=== PATIENT | female | born 1965 | race Asian ===

== ENCOUNTER 2020-10-14 18:27 | Inpatient (IN) | payer MEDICAID, SELFPAY ==
[~2020-10-14] VITALS: Ht 154.9 cm; Wt 56.7 kg
[~2020-10-14 18:27] MED LIST: ASPI-1822 GT; ATRN IH; BISA10SU2 RC; DOCU-300 GT; ESOM40EC GT; FER300L GT; GABA300C GT; GUAI100S2 GT; IPRA3AMP2 IH; MAGN2400 GT; METO25TA GT; OMEP40EC24 GT; POLY15SO48 OP; PRON IH; ROB1 GT; TRAM50TA1 GT; [UNRECOGNIZED DRUG - CODE] GT; [UNRECOGNIZED DRUG - CODE] GT; [UNRECOGNIZED DRUG - OTHER] TP
[2020-10-14 18:31] VITALS: BP 166/70
[2020-10-14] MEDS ORDERED: DEXT 5% / NACL 0.9% 500 ML IV ONE (22:20)
[2020-10-14 22:27] LABS: BASOPHILS % (AUTO) 0.7 % (0.0-2.0); EOSINOPHILS # (AUTO) 0.1 K/uL (0-0.4); EOSINOPHILS % (AUTO) 1.8 % (0.0-4.0); HEMATOCRIT 38.6 % (36-48); LYMPHOCYTES # (AUTO) 1.2 K/uL (2.5-16.5); LYMPHOCYTES % (AUTO) 26.1 % (20.5-51.1); MEAN CORPUSCULAR HEMOGLOBIN 31 pg (27-31); MEAN CORPUSCULAR HGB CONC 34 g/dL (33-37); MEAN CORPUSCULAR VOLUME 91.4 fL (80-94); MONOCYTES # (AUTO) 0.4 K/uL (0.8-1.0); MONOCYTES % (AUTO) 8.9 % (1.7-9.3); NEUTROPHILS # (AUTO) 2.8 K/uL (1.8-7.7); NEUTROPHILS % (AUTO) 62.5 % (42.2-75.2); PLATELET COUNT (AUTO) 181 K/uL (140-450); RED BLOOD CELL COUNT(AUTO) 4.23 MIL/uL (4.20-5.40); RED CELL DISTRIBUTION WIDTH 13.4 % (11.6-13.7); WHITE BLOOD COUNT (AUTO) 4.5 K/uL (4.8-10.8)
[2020-10-14 22:48] LABS: ALBUMIN 3.8 g/dL (3.4-5.0); ANION GAP 13.2 (8-16); CARBON DIOXIDE 26.6 mmol/L (21-32); CREATININE 0.6 mg/dL (0.6-1.3); TOTAL BILIRUBIN 0.6 mg/dL (0.0-1.0)
[2020-10-14 23:07] LABS: POTASSIUM 2.8 mmol/L (3.5-5.1)
[2020-10-14] MEDS ORDERED: guaiFENesin 20 MG/ML UDC GT SCH (23:20)
[2020-10-14] MEDS ORDERED: ACETAMINOPHEN 325 MG TAB PO PRN (23:20)
[2020-10-14] MEDS ORDERED: ZOLPIDEM 5 MG TAB PO PRN (23:20)
[2020-10-14] MEDS ORDERED: MAG SULF 2000 MG/WATER PREMIX 50 ML IV PRN (23:20)
[2020-10-14] MEDS ORDERED: TPN PER PHARMACY MC PRN (23:20)
[2020-10-14] MEDS ORDERED: IPRATROPIUM 0.02% 0.5 MG/2.5 ML NEBU INH SCH (23:20)
[2020-10-14] MEDS ORDERED: ONDANSETRON 4 MG/2 ML VIAL IM/IVP PRN (23:20)
[2020-10-14] MEDS ORDERED: ALBUTEROL 0.083% 2.5 MG/3 ML NEBU INH SCH (23:20)
[2020-10-14] MEDS ORDERED: LORazepam 2 MG/ML VIAL IM/IVP PRN (23:20)
[2020-10-14] MEDS ORDERED: DOCUSATE SODIUM 100 MG GELCAP PO PRN (23:20)
[2020-10-14] MEDS ORDERED: POTASSIUM CHLORIDE 10 MEQ TABER PO PRN (23:20)
[2020-10-14] MEDS ORDERED: traMADol 50 MG TAB GT PRN (23:20)
[2020-10-15 00:03] LABS: MAGNESIUM 1.8 mg/dL (1.8-2.4); PHOSPHORUS 2.6 mg/dL (2.5-4.9); THYROID STIMULATING HORMONE 5.74 uIU/mL (0.34-3.74)
[2020-10-15 00:08] LABS: PROTHROMBIN TIME 10.9 secs (10.8-13.4)
[2020-10-15] MEDS: POLYVINYL ALCOHOL 1.4% OP 15 ML SOL BOTH EYES SCH ×4 (00:16→21:09)
[2020-10-15] MEDS ORDERED: IPRATROPIUM 0.02% 0.5 MG/2.5 ML NEBU INH PRN (00:20)
[2020-10-15] MEDS ORDERED: ALBUTEROL 0.083% 2.5 MG/3 ML NEBU INH PRN (00:20)
[2020-10-15] MEDS: MORPHINE SULFATE 2 MG/ML SYR IVP PRN ×5 (01:02→21:17)
[2020-10-15] MEDS ORDERED: BACITRACIN OINT 500 UNITS/GM PKT TP ONE ×2 (02:48→06:16)
[2020-10-15] MEDS ORDERED: KCL 20 MEQ/WATER INJ PREMIX 200 ML IV SCH (04:20)
[2020-10-15] MEDS ORDERED: POLYVINYL ALCOHOL 1.4% OP 15 ML SOL OP SCH (05:00)
[2020-10-15 07:58] LABS: BASOPHILS % (AUTO) 0.4 % (0.0-2.0); EOSINOPHILS # (AUTO) 0.1 K/uL (0-0.4); EOSINOPHILS % (AUTO) 1.5 % (0.0-4.0); HEMATOCRIT 40.3 % (36-48); HEMOGLOBIN 13.6 g/dL (12.0-16.0); LYMPHOCYTES # (AUTO) 0.9 K/uL (2.5-16.5); LYMPHOCYTES % (AUTO) 26.8 % (20.5-51.1); MEAN CORPUSCULAR HEMOGLOBIN 31 pg (27-31); MEAN CORPUSCULAR HGB CONC 34 g/dL (33-37); MEAN CORPUSCULAR VOLUME 92.1 fL (80-94); MONOCYTES # (AUTO) 0.3 K/uL (0.8-1.0); MONOCYTES % (AUTO) 9.5 % (1.7-9.3); NEUTROPHILS # (AUTO) 2.2 K/uL (1.8-7.7); NEUTROPHILS % (AUTO) 61.8 % (42.2-75.2); PLATELET COUNT (AUTO) 177 K/uL (140-450); RED BLOOD CELL COUNT(AUTO) 4.37 MIL/uL (4.20-5.40); RED CELL DISTRIBUTION WIDTH 13.2 % (11.6-13.7); WHITE BLOOD COUNT (AUTO) 3.5 K/uL (4.8-10.8)
[2020-10-15 08:26] LABS: ANION GAP 15.3 (8-16); CARBON DIOXIDE 25.9 mmol/L (21-32); CREATININE 0.6 mg/dL (0.6-1.3); POTASSIUM 3.2 mmol/L (3.5-5.1)
[2020-10-15 09:09] LABS: MAGNESIUM 1.9 mg/dL (1.8-2.4); PHOSPHORUS 2.6 mg/dL (2.5-4.9)
[2020-10-15] MEDS ORDERED: CRUSHER, PILL MC ONE (09:17)
[2020-10-15] MEDS: GABAPENTIN 300 MG CAP GT SCH ×2 (09:27→21:11)
[2020-10-15] MEDS: DOCUSATE SODIUM 100 MG GELCAP PO SCH (09:27)
[2020-10-15] MEDS: ASPIRIN 81 MG TAB.CHEW GT SCH (09:27)
[2020-10-15] MEDS: METOPROLOL 25 MG TAB GT SCH ×2 (09:27→21:10)
[2020-10-15] MEDS: FERROUS SULFATE 300 MG/5 ML UDC GT SCH (09:28)
[2020-10-15 11:04] LABS: CHOL/HDL RATIO 3.3 (1-4.5)
[2020-10-15] MEDS: GLYCOPYRROLATE 1 MG TAB GT SCH ×2 (11:39→21:11)
[2020-10-15] MEDS: BLOOD GLUCOSE MONITORING 1 DEV DEV MC SCH (18:19)
[2020-10-15 20:00] VITALS: BP 153/70
[2020-10-15] MEDS ORDERED: DEXTROSE IV SCH ×4 (20:00)
[2020-10-15] MEDS ORDERED: [UNRECOGNIZED DRUG - OTHER] IV SCH ×4 (20:00)
[2020-10-15] MEDS ORDERED: AMINO ACIDS IV SCH ×4 (20:00)
[2020-10-15] MEDS ORDERED: MULTIVITAMIN IV SCH ×4 (20:00)
[2020-10-15] MEDS ORDERED: GABAPENTIN 300 MG CAP GT SCH (21:00)
[2020-10-15] MEDS ORDERED: DEXT 5% /NACL 0.9% 1,000 ML IV SCH (23:35)
[2020-10-16] MEDS: BLOOD GLUCOSE MONITORING 1 DEV DEV MC SCH ×4 (00:12→17:59)
[2020-10-16 04:00] VITALS: BP 144/58
[2020-10-16] MEDS: POLYVINYL ALCOHOL 1.4% OP 15 ML SOL BOTH EYES SCH ×3 (04:46→21:06)
[2020-10-16 08:00] VITALS: BP 148/79
[2020-10-16 08:20] LABS: T4 (THYROXINE) 6.1 ug/dL (4.5-12.0)
[2020-10-16] MEDS: FERROUS SULFATE 300 MG/5 ML UDC GT SCH (08:26)
[2020-10-16] MEDS: ASPIRIN 81 MG TAB.CHEW GT SCH (08:26)
[2020-10-16] MEDS: GABAPENTIN 300 MG CAP GT SCH ×2 (08:27→21:05)
[2020-10-16] MEDS: GLYCOPYRROLATE 1 MG TAB GT SCH ×2 (08:27→21:05)
[2020-10-16] MEDS: METOPROLOL 25 MG TAB GT SCH ×2 (08:27→21:05)
[2020-10-16] MEDS: DOCUSATE SODIUM 100 MG GELCAP PO SCH (08:28)
[2020-10-16 09:35] LABS: BASOPHILS % (AUTO) 0.2 % (0.0-2.0); EOSINOPHILS % (AUTO) 0.8 % (0.0-4.0); HEMATOCRIT 41.1 % (36-48); HEMOGLOBIN 13.5 g/dL (12.0-16.0); LYMPHOCYTES # (AUTO) 0.7 K/uL (2.5-16.5); LYMPHOCYTES % (AUTO) 17.4 % (20.5-51.1); MEAN CORPUSCULAR HEMOGLOBIN 31 pg (27-31); MEAN CORPUSCULAR HGB CONC 33 g/dL (33-37); MEAN CORPUSCULAR VOLUME 93.3 fL (80-94); MONOCYTES # (AUTO) 0.3 K/uL (0.8-1.0); MONOCYTES % (AUTO) 7.6 % (1.7-9.3); NEUTROPHILS # (AUTO) 2.9 K/uL (1.8-7.7); PLATELET COUNT (AUTO) 173 K/uL (140-450); RED BLOOD CELL COUNT(AUTO) 4.41 MIL/uL (4.20-5.40); RED CELL DISTRIBUTION WIDTH 13.3 % (11.6-13.7); WHITE BLOOD COUNT (AUTO) 3.9 K/uL (4.8-10.8)
[2020-10-16 09:41] LABS: ANION GAP 11.9 (8-16); CARBON DIOXIDE 29.3 mmol/L (21-32); CREATININE 0.7 mg/dL (0.6-1.3); POTASSIUM 3.2 mmol/L (3.5-5.1)
[2020-10-16 09:50] LABS: PHOSPHORUS 2.3 mg/dL (2.5-4.9)
[2020-10-16] MEDS: MORPHINE SULFATE 2 MG/ML SYR IVP PRN ×3 (11:55→21:07)
[2020-10-16 12:00] VITALS: BP 145/69
[2020-10-16] MEDS ORDERED: DEXT 5% / NACL 0.45% 1,000 ML IV SCH (12:00)
[2020-10-16] MEDS ORDERED: POTASSIUM PHOSPHATE 15 MM in NACL 0.9% 250 ML IV SCH (14:00)
[2020-10-16 16:00] VITALS: BP 159/68
[2020-10-16 20:00] VITALS: BP 134/66
[2020-10-16] MEDS: DEXTROSE IV SCH ×4 (22:49)
[2020-10-16] MEDS: AMINO ACIDS IV SCH ×4 (22:49)
[2020-10-16] MEDS: MULTIVITAMIN IV SCH ×4 (22:49)
[2020-10-16] MEDS: [UNRECOGNIZED DRUG - OTHER] IV SCH ×4 (22:49)
[2020-10-17] MEDS: BLOOD GLUCOSE MONITORING 1 DEV DEV MC SCH ×5 (00:17→23:59)
[2020-10-17] MEDS: MORPHINE SULFATE 2 MG/ML SYR IVP PRN ×4 (05:39→22:16)
[2020-10-17] MEDS: POLYVINYL ALCOHOL 1.4% OP 15 ML SOL BOTH EYES SCH ×3 (05:41→20:44)
[2020-10-17 06:10] VITALS: BP 137/86
[2020-10-17 06:58] LABS: BASOPHILS % (AUTO) 0.1 % (0.0-2.0); EOSINOPHILS % (AUTO) 0.3 % (0.0-4.0); HEMATOCRIT 36.9 % (36-48); HEMOGLOBIN 12.5 g/dL (12.0-16.0); LYMPHOCYTES # (AUTO) 0.8 K/uL (2.5-16.5); LYMPHOCYTES % (AUTO) 8.3 % (20.5-51.1); MEAN CORPUSCULAR HEMOGLOBIN 31 pg (27-31); MEAN CORPUSCULAR HGB CONC 34 g/dL (33-37); MONOCYTES # (AUTO) 0.5 K/uL (0.8-1.0); MONOCYTES % (AUTO) 4.6 % (1.7-9.3); NEUTROPHILS # (AUTO) 8.5 K/uL (1.8-7.7); NEUTROPHILS % (AUTO) 86.7 % (42.2-75.2); PLATELET COUNT (AUTO) 159 K/uL (140-450); RED BLOOD CELL COUNT(AUTO) 4.01 MIL/uL (4.20-5.40); RED CELL DISTRIBUTION WIDTH 13.2 % (11.6-13.7); WHITE BLOOD COUNT (AUTO) 9.8 K/uL (4.8-10.8)
[2020-10-17 07:43] LABS: CARBON DIOXIDE 28.5 mmol/L (21-32); CREATININE 0.5 mg/dL (0.6-1.3)
[2020-10-17 07:44] LABS: PHOSPHORUS 2.4 mg/dL (2.5-4.9)
[2020-10-17 07:50] LABS: ANION GAP 12.5 (8-16)
[2020-10-17 07:58] LABS: MAGNESIUM 1.8 mg/dL (1.8-2.4)
[2020-10-17 08:00] VITALS: BP 145/76
[2020-10-17] MEDS: FERROUS SULFATE 300 MG/5 ML UDC GT SCH (09:59)
[2020-10-17] MEDS: GABAPENTIN 300 MG CAP GT SCH ×2 (09:59→20:44)
[2020-10-17] MEDS: DOCUSATE 100 MG/10 ML UDC PO SCH (10:00)
[2020-10-17] MEDS: ASPIRIN 81 MG TAB.CHEW GT SCH (10:00)
[2020-10-17] MEDS ORDERED: POTASSIUM PHOSPHATE 15 MM in NACL 0.9% 250 ML IV SCH (10:00)
[2020-10-17] MEDS: METOPROLOL 25 MG TAB GT SCH ×2 (10:00→20:44)
[2020-10-17] MEDS: GLYCOPYRROLATE 1 MG TAB GT SCH ×2 (10:00→20:44)
[2020-10-17 16:00] VITALS: BP 126/66
[2020-10-17 20:00] VITALS: BP 138/67
[2020-10-17] MEDS: DEXTROSE IV SCH ×4 (20:44)
[2020-10-17] MEDS: AMINO ACIDS IV SCH ×4 (20:44)
[2020-10-17] MEDS: [UNRECOGNIZED DRUG - OTHER] IV SCH ×4 (20:44)
[2020-10-17] MEDS: MULTIVITAMIN IV SCH ×4 (20:44)
[2020-10-17] MEDS ORDERED: PIPERACILLIN/TAZOBACTAM 3.375 GM VIAL IV ONE (23:43)
[2020-10-17] MEDS: PIPERACILLIN/TAZOBACTAM 3.375 GM in DEXTROSE 5% 50 ML IV SCH (23:53)
[2020-10-18 04:00] VITALS: BP 117/57
[2020-10-18] MEDS: POLYVINYL ALCOHOL 1.4% OP 15 ML SOL BOTH EYES SCH ×3 (04:13→21:08)
[2020-10-18] MEDS ORDERED: PIPERACILLIN/TAZOBACTAM 3.375 GM VIAL IV ONE (05:02)
[2020-10-18] MEDS: MORPHINE SULFATE 2 MG/ML SYR IVP PRN ×5 (05:05→22:21)
[2020-10-18] MEDS: PIPERACILLIN/TAZOBACTAM 3.375 GM in DEXTROSE 5% 50 ML IV SCH ×3 (05:21→18:27)
[2020-10-18] MEDS: BLOOD GLUCOSE MONITORING 1 DEV DEV MC SCH ×3 (05:32→18:41)
[2020-10-18 07:09] LABS: BASOPHILS % (AUTO) 0.6 % (0.0-2.0); EOSINOPHILS # (AUTO) 0.1 K/uL (0-0.4); EOSINOPHILS % (AUTO) 1.6 % (0.0-4.0); HEMATOCRIT 38.8 % (36-48); HEMOGLOBIN 13.1 g/dL (12.0-16.0); LYMPHOCYTES # (AUTO) 0.7 K/uL (2.5-16.5); LYMPHOCYTES % (AUTO) 15.7 % (20.5-51.1); MEAN CORPUSCULAR HEMOGLOBIN 31 pg (27-31); MEAN CORPUSCULAR HGB CONC 34 g/dL (33-37); MEAN CORPUSCULAR VOLUME 92.4 fL (80-94); MONOCYTES # (AUTO) 0.3 K/uL (0.8-1.0); MONOCYTES % (AUTO) 7.6 % (1.7-9.3); NEUTROPHILS # (AUTO) 3.4 K/uL (1.8-7.7); NEUTROPHILS % (AUTO) 74.5 % (42.2-75.2); PLATELET COUNT (AUTO) 159 K/uL (140-450); RED BLOOD CELL COUNT(AUTO) 4.19 MIL/uL (4.20-5.40); RED CELL DISTRIBUTION WIDTH 13.1 % (11.6-13.7); WHITE BLOOD COUNT (AUTO) 4.5 K/uL (4.8-10.8)
[2020-10-18 08:48] LABS: ANION GAP 10.3 (8-16); CARBON DIOXIDE 31.8 mmol/L (21-32); CREATININE 0.6 mg/dL (0.6-1.3); POTASSIUM 3.1 mmol/L (3.5-5.1)
[2020-10-18] MEDS: GLYCOPYRROLATE 1 MG TAB GT SCH ×2 (09:15→21:09)
[2020-10-18] MEDS: DOCUSATE 100 MG/10 ML UDC PO SCH (09:15)
[2020-10-18] MEDS: FERROUS SULFATE 300 MG/5 ML UDC GT SCH (09:15)
[2020-10-18] MEDS: GABAPENTIN 300 MG CAP GT SCH ×2 (09:15→21:09)
[2020-10-18] MEDS: METOPROLOL 25 MG TAB GT SCH ×2 (09:15→21:09)
[2020-10-18 09:18] LABS: MAGNESIUM 2.3 mg/dL (1.8-2.4); PHOSPHORUS 3.4 mg/dL (2.5-4.9)
[2020-10-18] MEDS: KCL 20 MEQ/WATER INJ PREMIX 100 ML IV SCH (12:01)
[2020-10-18 16:00] VITALS: BP 118/70
[2020-10-18] MEDS: HYDROcodone/APAP 5/325 MG 1 TAB TAB PO PRN ×2 (16:55→23:25)
[2020-10-18 20:00] VITALS: BP 121/72
[2020-10-18] MEDS: DEXTROSE IV SCH ×8 (20:00)
[2020-10-18] MEDS: [UNRECOGNIZED DRUG - OTHER] IV SCH ×8 (20:00)
[2020-10-18] MEDS: MULTIVITAMIN IV SCH ×8 (20:00)
[2020-10-18] MEDS: AMINO ACIDS IV SCH ×8 (20:00)
[2020-10-19] MEDS: BLOOD GLUCOSE MONITORING 1 DEV DEV MC SCH ×5 (00:45→23:33)
[2020-10-19] MEDS: PIPERACILLIN/TAZOBACTAM 3.375 GM in DEXTROSE 5% 50 ML IV SCH ×5 (00:52→23:25)
[2020-10-19 04:00] VITALS: BP 128/62
[2020-10-19] MEDS: POLYVINYL ALCOHOL 1.4% OP 15 ML SOL BOTH EYES SCH ×3 (04:12→21:29)
[2020-10-19] MEDS: MORPHINE SULFATE 2 MG/ML SYR IVP PRN (04:31)
[2020-10-19 07:07] LABS: BASOPHILS % (AUTO) 0.2 % (0.0-2.0); EOSINOPHILS # (AUTO) 0.2 K/uL (0-0.4); EOSINOPHILS % (AUTO) 4.4 % (0.0-4.0); LYMPHOCYTES # (AUTO) 0.6 K/uL (2.5-16.5); LYMPHOCYTES % (AUTO) 17.1 % (20.5-51.1); MEAN CORPUSCULAR HEMOGLOBIN 31 pg (27-31); MEAN CORPUSCULAR HGB CONC 33 g/dL (33-37); MEAN CORPUSCULAR VOLUME 92.8 fL (80-94); MONOCYTES # (AUTO) 0.3 K/uL (0.8-1.0); MONOCYTES % (AUTO) 6.9 % (1.7-9.3); NEUTROPHILS # (AUTO) 2.7 K/uL (1.8-7.7); NEUTROPHILS % (AUTO) 71.4 % (42.2-75.2); PLATELET COUNT (AUTO) 155 K/uL (140-450); RED BLOOD CELL COUNT(AUTO) 3.88 MIL/uL (4.20-5.40); RED CELL DISTRIBUTION WIDTH 13.5 % (11.6-13.7); WHITE BLOOD COUNT (AUTO) 3.7 K/uL (4.8-10.8)
[2020-10-19] MEDS ORDERED: LIDOCAINE 1% 500 MG/50 ML VIAL ONE (07:13)
[2020-10-19] MEDS ORDERED: BUPIVACAINE-MPF/EPI 0.25% 10 ML VIAL INJ ONE ×2 (07:14→07:15)
[2020-10-19 07:25] LABS: ANION GAP 8.5 (8-16); CARBON DIOXIDE 31.7 mmol/L (21-32); CREATININE 0.7 mg/dL (0.6-1.3); POTASSIUM 4.2 mmol/L (3.5-5.1)
[2020-10-19] MEDS ORDERED: NEOSTIGMINE 1:1000 10 MG/10 ML VIAL ONE (07:33)
[2020-10-19] MEDS ORDERED: DEXAMETHASONE 4 MG/ML VIAL ONE (07:33)
[2020-10-19] MEDS ORDERED: PROPOFOL 200 MG/20 ML VIAL IV ONE (07:33)
[2020-10-19] MEDS ORDERED: GLYCOPYRROLATE 0.2 MG/ML VIAL ONE (07:33)
[2020-10-19] MEDS ORDERED: METOCLOPRAMIDE 10 MG/2 ML INJ VIAL ONE (07:33)
[2020-10-19] MEDS ORDERED: ROCURONIUM 50 MG/5 ML VIAL IV ONE (07:33)
[2020-10-19] MEDS ORDERED: SEVOFLURANE 250 ML BTL INH ONE (07:33)
[2020-10-19] MEDS ORDERED: fentaNYL citrate 0.05 MG/ML VIAL ONE (07:33)
[2020-10-19] MEDS ORDERED: ePHEDrine 50 MG/ML VIAL ONE (07:33)
[2020-10-19] MEDS ORDERED: MIDAZOLAM 2 MG/2 ML VIAL ONE (07:33)
[2020-10-19 07:50] LABS: MAGNESIUM 2.2 mg/dL (1.8-2.4); PHOSPHORUS 3.6 mg/dL (2.5-4.9)
[2020-10-19] MEDS ORDERED: MEPERIDINE 25 MG/ML SYR IVP PRN (08:20)
[2020-10-19] MEDS ORDERED: HYDROmorphone 1 MG/ML AMP IVP PRN ×2 (08:20→09:35)
[2020-10-19] MEDS ORDERED: ONDANSETRON 4 MG/2 ML VIAL IVP PRN (08:20)
[2020-10-19] MEDS ORDERED: diphenhydrAMINE 50 MG/ML VIAL IVP PRN (08:20)
[2020-10-19] MEDS: DOCUSATE 100 MG/10 ML UDC PO SCH (09:00)
[2020-10-19] MEDS: METOPROLOL 25 MG TAB GT SCH ×3 (09:00→21:28)
[2020-10-19] MEDS: FERROUS SULFATE 300 MG/5 ML UDC GT SCH (09:00)
[2020-10-19] MEDS: GABAPENTIN 300 MG CAP GT SCH ×3 (09:00→21:18)
[2020-10-19] MEDS: GLYCOPYRROLATE 1 MG TAB GT SCH ×3 (09:00→21:18)
[2020-10-19] MEDS ORDERED: MORPHINE SULFATE 4 MG/ML SYR IV PRN (09:35)
[2020-10-19] MEDS ORDERED: MORPHINE SULFATE 2 MG/ML SYR IVP PRN (09:35)
[2020-10-19] MEDS ORDERED: HYDROmorphone PFS 2 MG/ML SYR ONE (09:55)
[2020-10-19] MEDS: KCL 20 MEQ/WATER INJ PREMIX 100 ML IV SCH (10:00)
[2020-10-19] MEDS: LACTATED RINGERS 1,000 ML IV SCH ×2 (11:02→16:43)
[2020-10-19] MEDS: INSULIN LISPRO SLIDING SCALE 100 UNITS/ML VIAL SUBQ PRN ×3 (13:13→23:34)
[2020-10-19 16:00] VITALS: BP 155/85
[2020-10-19] MEDS: MORPHINE SULFATE 4 MG/ML SYR IVP PRN (16:44)
[2020-10-19] MEDS: AMINO ACIDS IV SCH ×4 (20:45)
[2020-10-19] MEDS: DEXTROSE IV SCH ×4 (20:45)
[2020-10-19] MEDS: [UNRECOGNIZED DRUG - OTHER] IV SCH ×4 (20:45)
[2020-10-19] MEDS: MULTIVITAMIN IV SCH ×4 (20:45)
[2020-10-19] MEDS ORDERED: DEXTROSE 5% 1,000 ML IV SCH (22:10)
[2020-10-19] MEDS: NACL 0.9% 1,000 ML IV SCH (22:34)
[2020-10-20 04:00] VITALS: BP 159/81
[2020-10-20] MEDS: PIPERACILLIN/TAZOBACTAM 3.375 GM in DEXTROSE 5% 50 ML IV SCH ×3 (05:41→17:16)
[2020-10-20] MEDS: POLYVINYL ALCOHOL 1.4% OP 15 ML SOL BOTH EYES SCH ×3 (05:45→21:00)
[2020-10-20] MEDS: BLOOD GLUCOSE MONITORING 1 DEV DEV MC SCH ×3 (05:49→18:12)
[2020-10-20] MEDS: INSULIN LISPRO SLIDING SCALE 100 UNITS/ML VIAL SUBQ PRN ×3 (05:51→18:12)
[2020-10-20 06:55] LABS: BASOPHILS % (AUTO) 0.1 % (0.0-2.0); HEMATOCRIT 35.2 % (36-48); LYMPHOCYTES # (AUTO) 0.5 K/uL (2.5-16.5); LYMPHOCYTES % (AUTO) 4.8 % (20.5-51.1); MEAN CORPUSCULAR HEMOGLOBIN 31 pg (27-31); MEAN CORPUSCULAR HGB CONC 34 g/dL (33-37); MONOCYTES # (AUTO) 0.4 K/uL (0.8-1.0); MONOCYTES % (AUTO) 4.1 % (1.7-9.3); NEUTROPHILS # (AUTO) 9.9 K/uL (1.8-7.7); PLATELET COUNT (AUTO) 162 K/uL (140-450); RED BLOOD CELL COUNT(AUTO) 3.82 MIL/uL (4.20-5.40); RED CELL DISTRIBUTION WIDTH 13.1 % (11.6-13.7); WHITE BLOOD COUNT (AUTO) 10.8 K/uL (4.8-10.8)
[2020-10-20 07:12] LABS: ANION GAP 12.3 (8-16); CARBON DIOXIDE 27.3 mmol/L (21-32); CREATININE 0.7 mg/dL (0.6-1.3); POTASSIUM 3.6 mmol/L (3.5-5.1)
[2020-10-20 07:13] LABS: PHOSPHORUS 2.3 mg/dL (2.5-4.9)
[2020-10-20] MEDS: DOCUSATE 100 MG/10 ML UDC PO SCH (10:30)
[2020-10-20] MEDS: GABAPENTIN 300 MG CAP GT SCH ×2 (10:30→22:17)
[2020-10-20] MEDS: FERROUS SULFATE 300 MG/5 ML UDC GT SCH (10:30)
[2020-10-20] MEDS: GLYCOPYRROLATE 1 MG TAB GT SCH ×2 (10:30→22:18)
[2020-10-20] MEDS: METOPROLOL 25 MG TAB GT SCH ×2 (10:31→17:16)
[2020-10-20] MEDS: MORPHINE SULFATE 4 MG/ML SYR IVP PRN ×3 (10:31→21:57)
[2020-10-20 12:00] VITALS: BP 156/75
[2020-10-20] MEDS: NACL 0.9% 1,000 ML IV SCH (18:25)
[2020-10-20 19:24] VITALS: BP 158/91
[2020-10-20 20:00] VITALS: BP 158/91
[2020-10-20] MEDS: AMINO ACIDS IV SCH ×4 (20:00)
[2020-10-20] MEDS: DEXTROSE IV SCH ×4 (20:00)
[2020-10-20] MEDS: [UNRECOGNIZED DRUG - OTHER] IV SCH ×4 (20:00)
[2020-10-20] MEDS: MULTIVITAMIN IV SCH ×4 (20:00)
[2020-10-21] MEDS: PIPERACILLIN/TAZOBACTAM 3.375 GM in DEXTROSE 5% 50 ML IV SCH ×2 (00:07→05:06)
[2020-10-21] MEDS: INSULIN LISPRO SLIDING SCALE 100 UNITS/ML VIAL SUBQ PRN ×2 (00:24→05:48)
[2020-10-21] MEDS: BLOOD GLUCOSE MONITORING 1 DEV DEV MC SCH ×2 (00:27→05:57)
[2020-10-21 04:00] VITALS: BP 141/74
[2020-10-21] MEDS: POLYVINYL ALCOHOL 1.4% OP 15 ML SOL BOTH EYES SCH (05:56)
[2020-10-21 08:41] LABS: MAGNESIUM 2.1 mg/dL (1.8-2.4); PHOSPHORUS 2.1 mg/dL (2.5-4.9)
[2020-10-21 08:45] LABS: ANION GAP 10.8 (8-16); CARBON DIOXIDE 28.8 mmol/L (21-32); CREATININE 0.6 mg/dL (0.6-1.3); POTASSIUM 3.6 mmol/L (3.5-5.1)
[2020-10-21] MEDS ORDERED: METOPROLOL 25 MG TAB GT SCH (09:00)
[2020-10-21] MEDS: GLYCOPYRROLATE 1 MG TAB GT SCH (10:30)
[2020-10-21] MEDS: FERROUS SULFATE 300 MG/5 ML UDC GT SCH (10:30)
[2020-10-21] MEDS: DOCUSATE 100 MG/10 ML UDC PO SCH (10:30)
[2020-10-21] MEDS: GABAPENTIN 300 MG CAP GT SCH (10:31)
[2020-10-21] MEDS: HYDROcodone/APAP 5/325 MG 1 TAB TAB PO PRN (10:31)
[2020-10-21] MEDS: METOPROLOL 25 MG TAB GT SCH (10:31)
== END 2020-10-21 11:50 | DRG 220 ==
LOC: MED 18:27 → MTU 23:14 → MMU 10-15 08:11
PROC: 0DNW0ZZ Release Peritoneum, Open Approach (ICD-10-PCS; 2020-10-19)
PROC: 0DH Gastrointestinal System, Insertion (ICD-10-PCS; 2020-10-19)
PROC: 0WQF0ZZ Repair Abdominal Wall, Open Approach (ICD-10-PCS; 2020-10-19)
PROC: 0DB60ZZ Excision of Stomach, Open Approach (ICD-10-PCS; principal; 2020-10-19 07:30)
DX: K94.23 Gastrostomy malfunction (principal); Z20.828 Contact with and (suspected) exposure to other viral communicable diseases; K31.6 Fistula of stomach and duodenum; L03.311 Cellulitis of abdominal wall; K43.9 Ventral hernia without obstruction or gangrene; K66.0 Peritoneal adhesions (postprocedural) (postinfection); Z85.818 Personal history of malignant neoplasm of other sites of lip, oral cavity, and pharynx; Z85.89 Personal history of malignant neoplasm of other organs and systems; Z90.3 Acquired absence of stomach [part of]; R13.10 Dysphagia, unspecified; D64.9 Anemia, unspecified; E87.0 Hyperosmolality and hypernatremia; E87.6 Hypokalemia; E83.39 Other disorders of phosphorus metabolism
CPT/HCPCS: 36415; 71045; 80048; 80053; 82150; 82948; 83036; 83690; 83735; 83880; 84100; 84134; 84436; 84443; 85025; 85610; 85730; 87081; 88304; 99285; A9153; J1100; J1170; J1644; J1815; J2001; J2175; J2250; J2270; J2405; J2543; J2704; J2710; J2765; J3010; J3480; J3490; J7030; J7060